=== PATIENT | female | born 1990 | race Caucasian/White ===

== ENCOUNTER 2018-02-11 08:37 | Observation (INO) | payer BC ==
[2018-02-11] MEDS ORDERED: Calcium Gluconate 10% 1 GM/10 ML SDV IVPUSH PRN (08:53)
[2018-02-11] MEDS ORDERED: Magnesium Sulfate/Water 4 GM in Premix Bag 1 BAG IV ONE (08:53)
[2018-02-11] MEDS ORDERED: Betamethasone Acetate/Betamethasone Sod Phosphate 30 MG/5 ML MDV IM SCH (09:00)
[2018-02-11] MEDS ORDERED: Magnesium Sulfate/Water 40 GM/1,000 ML BAG IV SCH (09:00)
[2018-02-11] MEDS ORDERED: Ampicillin 2 GM in Sodium Chloride 0.9% 100 ML IV SCH (09:00)
[2018-02-11] MEDS ORDERED: Lactated Ringers 1,000 ML IV SCH (10:00)
--- NOTE | 2018-02-11 10:42 | US ---
EXAMINATION: Transabdominal obstetric ultrasound HISTORY: contractions COMPARISON: None TECHNIQUE: Grayscale and spectral Doppler imaging obtained. FINDINGS: There is a single live intrauterine in a cephalic position. The placenta is anter ior and intact. Amniotic fluid level appears normal. heart rate is 191 bpm. The biparietal diam eter measures 6.6 cm, head circumference measures 24.3 cm, abdominal circumference measures 23.6 cm, and the femoral length measures 5.7 cm. Overall the fetus is within the 6th percentile when comparing to an LMP of 07/18/2017. Estimated weight is 1199 g. Biometry ratios are normal. IMPRESSION: 1. Single live intrauterine in a cephalic position. 2. Overall the fetus is within the 6th percentile. 3. heart rate is 191 bpm.
[2018-02-11 11:13] LABS: CHLORIDE,CL 103 mmol/L (98-107); SODIUM,NA 136 mmol/L (136-145)
[2018-02-11] MEDS ORDERED: NIFEdipine 10 MG Cap PO ONE (11:55)
[2018-02-11] MEDS: Ampicillin 1 GM in Sodium Chloride 0.9% 50 ML IV SCH ×3 (14:40→19:03)
[2018-02-11 18:37] LABS: CHLORIDE,CL 99 mmol/L (98-107); SODIUM,NA 131 mmol/L (136-145)
== END 2018-02-11 21:55 ==
LOC: MW.OB 08:37
PROVIDERS: ADMIT Obstetrics & Gynecology; ATTEND Obstetrics & Gynecology
DX: O60.03 Preterm labor without delivery, third trimester (principal); Z3A.29 29 weeks gestation of pregnancy; O99.283 Endocrine, nutritional and metabolic diseases complicating pregnancy, third trimester; E03.9 Hypothyroidism, unspecified; Z79.899 Other long term (current) drug therapy; O34.33 Maternal care for cervical incompetence, third trimester
CPT/HCPCS: 36415; 59025; 76815; 80048; 80053; 83735; 85027; 86592; 86762; 86803; 86850; 86900; 86901; 87081; 87340; 87389; 87491; 87591; A9270; J0290; J0702; J3475; J7030; J7050; J7120; 96365; 96366; 96368; 96372; 96376; G0378

== ENCOUNTER → 2020-08-01 | Day surgery (SDC) | payer BC ==
[~2020-08-01] MED LIST: Acetaminophen 325 MG Tab PO ONE; Lactated Ringers 1,000 ML IV SCH; NIFEdipine 30 MG Tab.ER PO ONE; Sodium Chloride 0.9% 10 ML SDV IV PRN; Sodium Chloride 0.9% 10 ML Syringe FLUSH PRN; Sodium Chloride 0.9% 2.5 ML Syringe FLUSH PRN
--- NOTE | 2020-08-01 07:21 | PCM.PREANE ---
Preanesthetic Assessment - Anesthesia/Transfusion/Family Hx Anesthesia History: Prior Anesthesia Without Reaction Family History of Anesthesia Reaction: No Transfusion History: No Prior Transfusion(s) Intubation History: Unknown - Review of Systems General: No Symptoms Pulmonary: No Symptoms Cardiovascular: No Symptoms Gastrointestinal: No Symptoms Neurological: No Symptoms Other: Reports: None - Physical Assessment Vital Signs: Last Vital Signs Temp 37.1 C 08/01/20 07:15 Pulse 76 08/01/20 07:15 Resp 16 08/01/20 07:15 BP 116/80 08/01/20 07:15 Pulse Ox 100 08/01/20 07:15 Height: 5 ft 2 in Weight: 53.524 kg ASA Class: 2 Mental Status: Alert & Oriented x3 Airway Class: Mallampati = 2 Dentition: Reports: Normal Dentition Thyro-Mental Finger Breadths: 3 Mouth Opening Finger Breadths: 3 ROM/Head Extension: Full Lungs: Clear to Auscultation, Normal Respiratory Effort Cardiovascular: Regular Rate, Regular Rhythm - Lab Values: Laboratory Last Values Plt Count 296 K/uL (150-400) 08/01/20 06:57 - Allergies Allergies/Adverse Reactions: Allergies Allergy/AdvReac Type Severity Reaction Status Date / Time No Known Allergies Allergy Verified 08/01/20 07:10 - Blood Blood Available: No - Anesthesia Plan Pre-Op Medication Ordered: None - Acknowledgements Anesthesia Type Planned: Spinal Pt an Appropriate Candidate for the Planned Anesthesia: Yes Alternatives and Risks of Anesthesia Discussed w Pt/Guardian: Yes Pt/Guardian Understands and Agrees with Anesthesia Plan: Yes PreAnesthesia Questionnaire HEENT History: Reports: None Cardiovascular History: Reports: None Respiratory History: Reports: Asthma Other Respiratory History: seldom uses inhaler Gastrointestinal History: Reports: Other (See Below) Other Gastrointestinal History: occasional heartburn with Genitourinary History: Reports: None APPLICATIONS PACKAGER History: Reports: (18 weeks and 4 days) Musculoskeletal History: Reports: None Neurological History: Reports: None Psychiatric History: Reports: None Endocrine/Metabolic History: Reports: Hypothyroidism Other Endocrine/Metabolic History: hypoglycemia Hematologic History: Reports: None Immunologic History: Reports: None Oncologic (Cancer) History: Reports: None Dermatologic History: Reports: None - Past Surgical History Head Surgeries/Procedures: Reports: None HEENT Surgical History: Reports: None Cardiovascular Surgical History: Reports: None Respiratory Surgical History: Reports: None GI Surgical History: Reports: Appendectomy, Cholecystectomy Female Surgical History: Reports: None Endocrine Surgical History: Reports: None Neurological Surgical History: Reports: None Musculoskeletal Surgical History: Reports: None Oncologic Surgical History: Reports: None Dermatological Surgical History: Reports: None - SUBSTANCE USE Tobacco Use Status *Q: Never Tobacco User - HOME MEDS Home Medications: Home Meds Albuterol Sulfate [Albuterol Sulfate HFA] 1 - 2 puff INH ASDIRECTED PRN 07/29/20 [History] Calcium Carbonate [Tums] 1 tab.chew CHEW ASDIRECTED PRN 07/29/20 [History] Lactobacillus Acidophilus [Probiotic] 1 tab PO DAILY 07/29/20 [History] Levothyroxine Sodium [Synthroid] 75 mcg PO DAILY 07/29/20 [History] Multivit-Minerals/Folic Acid [Multivitamin Gummies] 1 tab.chew CHEW DAILY 07/29/20 [History] - CURRENT (IN HOUSE) MEDS Current Meds: Current Medications Lactated Ringer's (Ringers, Lactated) 1,000 mls @ 125 mls/hr IV ASDIRECTED JOE Last Admin: 08/01/20 07:10 Dose: 125 mls/hr Documented by: Sodium Chloride (Saline Flush) 10 ml FLUSH ASDIRECTED PRN PRN Reason: Keep Vein Open Sodium Chloride (Saline Flush) 2.5 ml FLUSH ASDIRECTED PRN PRN Reason: Keep Vein Open Sodium Chloride (Normal Saline) 10 ml IV ASDIRECTED PRN PRN Reason: IV Use
--- NOTE | 2020-08-01 08:36 | PCM.OPNOTE ---
- General Post-Op/Procedure Note Date of Surgery/Procedure: 08/01/20 Operative Procedure(s): Curry cereva Pre Op Diagnosis: [id number] wks. Cervical incomptance. Post-Op Diagnosis: Same Anesthesia Technique: Spinal Primary Surgeon: Hay SEN in mLs: 20 Complications: None Condition: Good
--- NOTE | 2020-08-01 08:37 | PCM.DCSUM1 ---
Discharge Summary - Hospital Course Diagnosis: Stroke: No - Discharge Data Discharge Date: 08/01/20 Discharge Disposition: Home, Self-Care 01 Condition: Good - Referral to Home Health Primary Care Physician: Hay Mancera MD - Patient Summary/Data Operative Procedure(s) Performed: Patricio abraham - Patient Instructions Diet: Usual Diet as Tolerated Showering/Bathing: October Shower - Discharge Plan Home Medications: Home Meds Albuterol Sulfate [Albuterol Sulfate HFA] 1 - 2 puff INH ASDIRECTED PRN 07/29/20 [History] Calcium Carbonate [Tums] 1 tab.chew CHEW ASDIRECTED PRN 07/29/20 [History] Lactobacillus Acidophilus [Probiotic] 1 tab PO DAILY 07/29/20 [History] Levothyroxine Sodium [Synthroid] 75 mcg PO DAILY 07/29/20 [History] Multivit-Minerals/Folic Acid [Multivitamin Gummies] 1 tab.chew CHEW DAILY 07/29/20 [History] - Discharge Summary/Plan Comment DC Time >30 min.: Yes - General Info Date of Service: 08/01/20 Functional Status: Reports: Pain Controlled - Review of Systems General: Reports: No Symptoms HEENT: Reports: No Symptoms Pulmonary: Reports: No Symptoms Cardiovascular: Reports: No Symptoms Gastrointestinal: Reports: No Symptoms Genitourinary: Reports: No Symptoms Musculoskeletal: Reports: No Symptoms Skin: Reports: No Symptoms Neurological: Reports: No Symptoms Psychiatric: Reports: No Symptoms - Patient Data Vitals - Most Recent: Last Vital Signs Temp 37.1 C 08/01/20 07:15 Pulse 76 08/01/20 07:15 Resp 16 08/01/20 07:15 BP 116/80 08/01/20 07:15 Pulse Ox 100 08/01/20 07:15 Weight - Most Recent: 53.524 kg Lab Results - Last 24 hrs: Laboratory Results - last 24 hr 08/01/20 Range/Units 06:57 Plt Count 296 (150-400) K/uL Med Orders - Current: Current Medications Lactated Ringer's (Ringers, Lactated) 1,000 mls @ 125 mls/hr IV ASDIRECTED JOE Last Admin: 08/01/20 07:10 Dose: 125 mls/hr Documented by: Sodium Chloride (Saline Flush) 10 ml FLUSH ASDIRECTED PRN PRN Reason: Keep Vein Open Sodium Chloride (Saline Flush) 2.5 ml FLUSH ASDIRECTED PRN PRN Reason: Keep Vein Open Sodium Chloride (Normal Saline) 10 ml IV ASDIRECTED PRN PRN Reason: IV Use - Exam General: Reports: Alert, Oriented HEENT: Reports: Pupils Equal, Pupils Reactive, EOMI, Mucous Membr. Moist/Burns Neck: Reports: Supple Lungs: Reports: Clear to Auscultation, Normal Respiratory Effort Cardiovascular: Reports: Regular Rate, Regular Rhythm GI/Abdominal Exam: Normal Bowel Sounds, Soft, Non-Tender, No Organomegaly, No Distention, No Abnormal Bruit, No Mass, Pelvis Stable (Female) Exam: Normal External Exam, Normal Speculum Exam, Normal Bimanual Exam Rectal (Female) Exam: Normal Exam, Normal Rectal Tone Back Exam: Reports: Normal Inspection, Full Range of Motion Extremities: Normal Inspection, Normal Range of Motion, Non-Tender, No Pedal Edema, Normal Capillary Refill Skin: Reports: Warm, Dry, Intact Wound/Incisions: Reports: Healing Well Neurological: Reports: No New Focal Deficit Psy/Mental Status: Reports: Alert, Normal Affect, Normal Mood
--- NOTE | 2020-08-01 08:46 | PCM.POSTAN ---
POST ANESTHESIA ASSESSMENT - MENTAL STATUS Mental Status: Alert, Oriented - VITAL SIGNS Vital Signs: Last Vital Signs Temp 36.6 C 08/01/20 08:31 Pulse 68 08/01/20 08:41 Resp 12 08/01/20 08:41 BP 101/71 08/01/20 08:41 Pulse Ox 100 08/01/20 08:41 - RESPIRATORY Respiratory Status: Respiratory Rate WNL, Airway Patent, O2 Saturation Stable - CARDIOVASCULAR CV Status: Pulse Rate WNL, Blood Pressure Stable - GASTROINTESTINAL GI Status: No Symptoms - PAIN Pain Score: 5 - POST OP HYDRATION Hydration Status: Adequate & Stable - OBSERVATIONS Free Text/Narrative:: No anesthesia problems
--- NOTE | 2020-08-01 12:45 | OR ---
SURGEON: Hay Mancera MD DATE OF PROCEDURE: 08/01/2020 PREOPERATIVE DIAGNOSES: Intrauterine at 18/19 weeks, cervical incompetence. POSTOPERATIVE DIAGNOSES: Intrauterine at 18/19 weeks, cervical incompetence. OPERATION PERFORMED: Estrada cerclage. PRIMARY SURGEON: Hay Mancera MD UNDERGRADUATE INTERN: OR tech. ANESTHESIA: Spinal. ESTIMATED BLOOD LOSS: Less than 20 mL. COMPLICATIONS: None. FINDING: Intrauterine . INDICATIONS FOR SURGERY: This patient had a previous history of presenting to Labor and Delivery with painless dilatation to 7 to 8 cm at 28 weeks. She started having feeling pressure in this at 18 weeks, and because of her history, I discussed with her doing a cerclage. After explaining and discussing the advantage and disadvantage, the patient is consented for Estrada cerclage. PROCEDURE IN DETAIL: The patient brought to the OR, properly identified. After adequate level of spinal anesthesia, a straight catheter was used to empty the bladder. The patient prepped and draped in sterile fashion as usual. A weighted speculum placed in the vagina and the anterior and posterior lip of the cervix grabbed with the ring forceps, and using Mersilene band, Estrada cerclage was performed in a circular manner around the cervix and tied with due amount of tension to prevent complication. There was minimum vaginal bleeding, and after finishing the cerclage and observing the patient for a few minutes, the procedure ended. The instrument and sponge count was correct. The patient tolerated the procedure well, went to recovery room in stable general condition. CESARFAR / GENETL /[id number]
--- NOTE | 2020-08-01 13:39 | PCM48HPAN ---
Post Anesthesia Note - EVALUATION WITHIN 48HRS OF ANESTHETIC Vital Signs in Normal Range: Yes Patient Participated in Evaluation: Yes Respiratory Function Stable: Yes Airway Patent: Yes Cardiovascular Function Stable: Yes Hydration Status Stable: Yes Pain Control Satisfactory: Yes Nausea and Vomiting Control Satisfactory: Yes Mental Status Recovered: Yes Vital Signs: Last Vital Signs Temp 37.1 C 08/01/20 08:50 Pulse 78 08/01/20 13:00 Resp 15 08/01/20 13:00 BP 109/60 08/01/20 13:00 Pulse Ox 100 08/01/20 13:00 - COMMENTS/OBSERVATIONS Free Text/Narrative:: "States that she only has "slight tingling in her foot" and that she has "enough control that she is not afraid to go home or walk"
== END | disposition home or self-care (01) ==
LOC: MW.SDS 06:28
PROVIDERS: ATTEND Obstetrics & Gynecology
DX: O34.32 Maternal care for cervical incompetence, second trimester (principal); E03.9 Hypothyroidism, unspecified; Z79.890 Hormone replacement therapy; Z3A.18 18 weeks gestation of pregnancy; Z79.899 Other long term (current) drug therapy
CPT/HCPCS: 36415; 59320; 85049; A9270; J7120; 00948

== ENCOUNTER 2020-12-12 02:26 | Inpatient (IN) | payer SELFPAY ==
[2020-12-12] MEDS ORDERED: Sodium Chloride 0.9% 10 ML SDV IV PRN (02:45)
[2020-12-12] MEDS ORDERED: Butorphanol 1 MG/ML SDV IVPUSH PRN (02:45)
[2020-12-12] MEDS ORDERED: Ondansetron 4 MG/2 ML SDV IVPUSH PRN (02:45)
[2020-12-12] MEDS ORDERED: Methylergonovine 0.2 MG/1 ML Amp IM PRN (02:45)
[2020-12-12] MEDS ORDERED: Misoprostol 200 MCG Tab PO PRN (02:45)
[2020-12-12] MEDS ORDERED: Nalbuphine 10 MG/1 ML Vial IVPUSH PRN (02:45)
[2020-12-12] MEDS ORDERED: Sodium Chloride 0.9% 2.5 ML Syringe FLUSH PRN (02:45)
[2020-12-12] MEDS ORDERED: Sodium Chloride 0.9% 10 ML Syringe FLUSH PRN (02:45)
[2020-12-12] MEDS ORDERED: Tranexamic Acid 1,000 MG in Sodium Chloride 0.9% 100 ML IV PRN (02:45)
[2020-12-12] MEDS ORDERED: Oxytocin/0.9 % Sodium Chloride 30 UNIT/500 ML BAG IV SCH (02:45)
[2020-12-12] MEDS ORDERED: Lactated Ringers 1,000 ML IV SCH (02:45)
[2020-12-12] MEDS ORDERED: Carboprost Tromethamine 250 MCG/1 ML Amp IM PRN (02:45)
[2020-12-12] MEDS ORDERED: Lidocaine 1% 50 ML MDV INJECT PRN (02:45)
[2020-12-12] MEDS ORDERED: Water For Irrigation,Sterile 1,000 ML Container IRR PRN (02:45)
--- NOTE | 2020-12-12 05:40 | PCM.LDHP ---
L&D History of Present Illness - General Date of Service: 12/12/20 Admit Problem/Dx: Patient Status Order with Admit Dx/Problem 12/12/20 02:28 Patient Status [ADT] Routine 12/12/20 02:45 Patient Status [ADT] Routine Admission Diagnosis/Problem Admission Diagnosis/Problem Source of Information: Patient History Limitations: Reports: No Limitations - History of Present Illness Introduction:: 30yo @ 37w4d presents with contractions for ~10hrs. Denies VB or LOF. care c/b h/o at 30GA, and incompetent cervix s/p cerclage this which was removed at 36w3d GA. She also has h/o hypothyroidism, currently treated with levothyroxine. Otherwise she is A+, abs screen neg, RI, HepBsAg neg, HIV neg, RPR NR, GC/Chlam neg, GBS neg. Location, : Reports: Abdomen Severity: Moderate - Related Data Allergies/Adverse Reactions: Allergies Allergy/AdvReac Type Severity Reaction Status Date / Time No Known Allergies Allergy Verified 12/12/20 05:28 Home Medications: Home Meds Albuterol Sulfate [Albuterol Sulfate HFA] 1 - 2 puff INH ASDIRECTED PRN 07/29/20 [History] Calcium Carbonate [Tums] 1 tab.chew CHEW ASDIRECTED PRN 07/29/20 [History] Lactobacillus Acidophilus [Probiotic] 1 tab PO DAILY 07/29/20 [History] Levothyroxine Sodium [Synthroid] 75 mcg PO DAILY 07/29/20 [History] Multivit-Minerals/Folic Acid [Multivitamin Gummies] 1 tab.chew CHEW DAILY 07/29/20 [History] Past Medical History HEENT History: Reports: None Cardiovascular History: Reports: None Respiratory History: Reports: Asthma Other Respiratory History: seldom uses inhaler Gastrointestinal History: Reports: None Other Gastrointestinal History: occasional heartburn with Genitourinary History: Reports: None CRM ANALYST History: Reports: , Spontaneous Musculoskeletal History: Reports: None Neurological History: Reports: None Psychiatric History: Reports: Anxiety Endocrine/Metabolic History: Reports: Hypothyroidism Other Endocrine/Metabolic History: hypoglycemia Hematologic History: Reports: None Immunologic History: Reports: None Oncologic (Cancer) History: Reports: None Dermatologic History: Reports: None - Past Surgical History Respiratory Surgical History: Reports: None GI Surgical History: Reports: Appendectomy, Cholecystectomy Endocrine Surgical History: Reports: None Social & Family History - Family History Family Medical History: No Pertinent Family History OBGYN: Reports: Endocrine/Metabolic: Reports: Diabetes, type II Oncologic: Reports: Thyroid - Tobacco Use Tobacco Use Status *Q: Never Tobacco User - Caffeine Use Caffeine Use: Reports: Coffee - Recreational Drug Use Recreational Drug Use: No H&P Review of Systems - Review of Systems: Review Of Systems: See Below General: Reports: No Symptoms HEENT: Reports: No Symptoms Pulmonary: Reports: No Symptoms Cardiovascular: Reports: No Symptoms Gastrointestinal: Reports: No Symptoms Genitourinary: Reports: No Symptoms Musculoskeletal: Reports: No Symptoms Skin: Reports: No Symptoms Psychiatric: Reports: No Symptoms Neurological: Reports: No Symptoms Hematologic/Lymphatic: Reports: No Symptoms Immunologic: Reports: No Symptoms L&D Exam - Exam Exam: See Below - Vital Signs Weight: 62.596 kg - OB Specific Contraction Intensity: Moderate Movement: Active Heart Tones: Present Heart Rate (FHR) Variability: Moderate (6-25 bmp) Presentation: Vertex Estimated Weight: 6 - Hager Score Hager Score Cervix Position: Midposition Hager Score Consistency: Soft Hager Score Effacement: 51-70% Hager Score Dilation: > 5 cm Hager Score Infant's Station: -2 Hager Score Total: 9 - Exam General: Alert, Oriented Lungs: Normal Respiratory Effort Cardiovascular: Regular Rate Psychiatric: Alert, Normal Affect, Normal Mood - Patient Data Lab Results Last 24 hrs: Laboratory Results - last 24 hr 12/12/20 12/12/20 12/12/20 Range/Units 03:09 03:40 03:40 WBC 15.01 H (4.0-11.0) K/uL RBC 4.49 (4.30-5.90) M/uL Hgb 13.6 (12.0-16.0) g/dL Hct 39.1 (36.0-46.0) % MCV 87.1 (80.0-98.0) fL MCH 30.3 (27.0-32.0) pg MCHC 34.8 (31.0-37.0) g/dL RDW Std Deviation 40.4 (28.0-62.0) fl RDW Coeff of Dionne 13 (11.0-15.0) % Plt Count 336 (150-400) K/uL MPV 10.60 (7.40-12.00) fL Nucleated RBC % 0.0 /100WBC Nucleated RBCs # 0 K/uL SARS-CoV-2 RNA (MYLES) NEGATIVE (NEGATIVE) Blood Type A POSITIVE Antibody Screen NEGATIVE Result Diagrams: 12/12/20 03:40 - Problem List (1) Active labor at term SNOMED Code(s): 98381675 ICD Code: [id number] - Status: Acute Priority: High Current Visit: Yes Problem List Initiated/Reviewed/Updated: Yes Orders Last 24hrs: Active Orders 24 hr Category Date Time Status Patient Status [ADT] Routine ADT 12/12/20 02:45 Active Heart Tones [RC] CONTINUOUS Care 12/12/20 02:45 Active Non Stress Test [RC] PER UNIT ROUTINE Care 12/12/20 02:28 Active May Shower [RC] ASDIRECTED Care 12/12/20 02:45 Active Notify Provider [RC] PRN Care 12/12/20 02:45 Active Up ad Anh [RC] ASDIRECTED Care 12/12/20 02:28 Active Vaginal Exam [RC] Click to Edit Care 12/12/20 02:28 Active Vital Signs [RC] PER UNIT ROUTINE Care 12/12/20 02:28 Active RPR (SYPHILIS SERO) W/ RFLX [REF] Routine Lab 12/12/20 03:40 Received Butorphanol [Stadol] Med 12/12/20 02:45 Active 1 mg IVPUSH Q1H PRN Carboprost Tromethamine [Hemabate DS] Med 12/12/20 02:45 Active 250 mcg IM ASDIRECTED PRN Lactated Ringers [Ringers, Lactated] 1,000 ml Med 12/12/20 02:45 Active IV ASDIRECTED Lidocaine 1% [Xylocaine 1%] Med 12/12/20 02:45 Active 50 ml INJECT ONETIME PRN Methylergonovine [Methergine] Med 12/12/20 02:45 Active 0.2 mg IM ASDIRECTED PRN Nalbuphine [Nubain] Med 12/12/20 02:45 Active 10 mg IVPUSH Q1H PRN Ondansetron [Zofran] Med 12/12/20 02:45 Active 4 mg IVPUSH Q6H PRN Oxytocin/0.9 % Sodium Chloride [Oxytocin 30 Unit/500 ML Med 12/12/20 02:45 Active -NS] 30 unit in 500 ml IV TITRATE Sodium Chloride 0.9% [Normal Saline] Med 12/12/20 02:45 Active 10 ml IV ASDIRECTED PRN Sodium Chloride 0.9% [Saline Flush] Med 12/12/20 02:45 Active 10 ml FLUSH ASDIRECTED PRN Sodium Chloride 0.9% [Saline Flush] Med 12/12/20 02:45 Active 2.5 ml FLUSH ASDIRECTED PRN Tranexamic Acid [Cyklokapron] 1,000 mg Med 12/12/20 02:45 Active Sodium Chloride 0.9% [Normal Saline] 100 ml IV ONETIME Water For Irrigation,Sterile [Sterile Water for Med 12/12/20 02:45 Active Irrigation] 1,000 ml IRR ASDIRECTED PRN miSOPROStoL [Cytotec] Med 12/12/20 02:45 Active 200 mcg PO ONETIME PRN Scalp Electrode [WOMSER] Per Unit Routine Oth 12/12/20 02:45 Ordered Peripheral IV Insertion Adult [OM.PC] Routine Oth 12/12/20 02:45 Ordered Resuscitation Status Routine Resus Stat 12/12/20 02:28 Ordered Medication Orders Butorphanol Tartrate (Butorphanol 1 Mg/Ml Sdv) 1 mg IVPUSH Q1H PRN PRN Reason: Pain (severe 7-10) Carboprost Tromethamine (Carboprost Tromethamine 250 Mcg/1 Ml Amp) 250 mcg IM ASDIRECTED PRN PRN Reason: Post Hemorrhage Lactated Ringer's (Ringers, Lactated) 1,000 mls @ 150 mls/hr IV ASDIRECTED JOE Oxytocin/Sodium Chloride (Oxytocin 30 Unit/500 Ml-Ns) 30 unit in 500 mls @ 999 mls/hr IV TITRATE JOE Tranexamic Acid 1,000 mg/ (Sodium Chloride) 110 mls @ 660 mls/hr IV ONETIME PRN PRN Reason: Bleeding Lidocaine HCl (Lidocaine 1% 50 Ml Mdv) 50 ml INJECT ONETIME PRN PRN Reason: Laceration repair Methylergonovine Maleate (Methylergonovine 0.2 Mg/1 Ml Amp) 0.2 mg IM ASDIRECTED PRN PRN Reason: Post Hemorrhage Misoprostol (Misoprostol 200 Mcg Tab) 200 mcg PO ONETIME PRN PRN Reason: Post Hemorrhage Nalbuphine HCl (Nalbuphine 10 Mg/1 Ml Vial) 10 mg IVPUSH Q1H PRN PRN Reason: Pain (severe 7-10) Ondansetron HCl (Ondansetron 4 Mg/2 Ml Sdv) 4 mg IVPUSH Q6H PRN PRN Reason: Nausea/Vomiting Sodium Chloride (Sodium Chloride 0.9% 10 Ml Syringe) 10 ml FLUSH ASDIRECTED PRN PRN Reason: Keep Vein Open Sodium Chloride (Sodium Chloride 0.9% 2.5 Ml Syringe) 2.5 ml FLUSH ASDIRECTED PRN PRN Reason: Keep Vein Open Sodium Chloride (Sodium Chloride 0.9% 10 Ml Sdv) 10 ml IV ASDIRECTED PRN PRN Reason: IV Use Sterile Water (Water For Irrigation,Sterile 1,000 Ml Container) 1,000 ml IRR ASDIRECTED PRN PRN Reason: delivery Assessment/Plan Comment:: 30yo @ 37w4d admitted in active labor. care c/b h/o at 30GA, and incompetent cervix s/p cerclage this which was removed at 36w3d GA. She also has h/o hypothyroidism, currently treated with levothyroxine. Hager score of 9. Cat 1 strip Patient declines the epidural. Expectant management.
--- NOTE | 2020-12-12 12:23 | PCM.DEL ---
L & D Note - General Info Date of Service: 12/12/20 Mother's Due Date: 12/29/20 - Delivery Note Labor: Spontaneous, Augmented by Oxytocin Delivery Outcome: Livebirth Infant Delivery Method: Spontaneous Vaginal Delivery-Single Presentation: Vertex Nuchal Cord: None Anesthesia Type: None Episiotomy Type: None Laceration: None Placenta: Intact, Spontaneous Cord: 3 Vessels Resuscitation Needed: No Score 1 min: 8 Score 5 min: 9 Second Stage Interventions: Reports: Second Nurse Assessed Progress of Descent, Second Nurse Reviewed Contraction Pattern, Second Nurse Reviewed Heart Tones, Encouragement Given, Pushing Effectively Delivery Comments (Free Text/Narrative):: viable female; head delivered with good pushing; shoulders and body followed easily after; baby immediately to mom's abdomen [id number] for assessment; APGARs 8/9; cord doubly clamped, cut by FOB; baby to warmer for further assessment; 4 lbs 4 oz; placenta delivered grossly intact, avila, 3VC; EBL 250 mL; small left-sided perineal laceration, not repaired; well-approximated, hemostatic; pitocin to IVF; mom and baby left in stable condition with nurse at bedside for assessment - General Info Date of Service: 12/12/20 Admission Dx/Problem (Free Text): Patient Status Order with Admit Dx/Problem 12/12/20 02:28 Patient Status [ADT] Routine 12/12/20 02:45 Patient Status [ADT] Routine Admission Diagnosis/Problem Admission Diagnosis/Problem Functional Status: Reports: Pain Controlled - Review of Systems General: Reports: No Symptoms HEENT: Reports: No Symptoms Pulmonary: Reports: No Symptoms Cardiovascular: Reports: No Symptoms Gastrointestinal: Reports: No Symptoms Genitourinary: Reports: No Symptoms Musculoskeletal: Reports: No Symptoms Skin: Reports: No Symptoms Neurological: Reports: No Symptoms Psychiatric: Reports: No Symptoms - Patient Data Weight - Most Recent: 138 lb Lab Results Last 24 Hours: Laboratory Results - last 24 hr 12/12/20 12/12/20 12/12/20 Range/Units 03:09 03:40 03:40 WBC 15.01 H (4.0-11.0) K/uL RBC 4.49 (4.30-5.90) M/uL Hgb 13.6 (12.0-16.0) g/dL Hct 39.1 (36.0-46.0) % MCV 87.1 (80.0-98.0) fL MCH 30.3 (27.0-32.0) pg MCHC 34.8 (31.0-37.0) g/dL RDW Std Deviation 40.4 (28.0-62.0) fl RDW Coeff of Dionne 13 (11.0-15.0) % Plt Count 336 (150-400) K/uL MPV 10.60 (7.40-12.00) fL Nucleated RBC % 0.0 /100WBC Nucleated RBCs # 0 K/uL SARS-CoV-2 RNA (MYLES) NEGATIVE (NEGATIVE) Blood Type A POSITIVE Antibody Screen NEGATIVE Med Orders - Current: Current Medications Butorphanol Tartrate (Butorphanol 1 Mg/Ml Sdv) 1 mg IVPUSH Q1H PRN PRN Reason: Pain (severe 7-10) Carboprost Tromethamine (Carboprost Tromethamine 250 Mcg/1 Ml Amp) 250 mcg IM ASDIRECTED PRN PRN Reason: Post Hemorrhage Lactated Ringer's (Ringers, Lactated) 1,000 mls @ 150 mls/hr IV ASDIRECTED JOE Oxytocin/Sodium Chloride (Oxytocin 30 Unit/500 Ml-Ns) 30 unit in 500 mls @ 999 mls/hr IV TITRATE JOE Tranexamic Acid 1,000 mg/ (Sodium Chloride) 110 mls @ 660 mls/hr IV ONETIME PRN PRN Reason: Bleeding Lidocaine HCl (Lidocaine 1% 50 Ml Mdv) 50 ml INJECT ONETIME PRN PRN Reason: Laceration repair Methylergonovine Maleate (Methylergonovine 0.2 Mg/1 Ml Amp) 0.2 mg IM ASDIRECTED PRN PRN Reason: Post Hemorrhage Misoprostol (Misoprostol 200 Mcg Tab) 200 mcg PO ONETIME PRN PRN Reason: Post Hemorrhage Nalbuphine HCl (Nalbuphine 10 Mg/1 Ml Vial) 10 mg IVPUSH Q1H PRN PRN Reason: Pain (severe 7-10) Ondansetron HCl (Ondansetron 4 Mg/2 Ml Sdv) 4 mg IVPUSH Q6H PRN PRN Reason: Nausea/Vomiting Sodium Chloride (Sodium Chloride 0.9% 10 Ml Syringe) 10 ml FLUSH ASDIRECTED PRN PRN Reason: Keep Vein Open Sodium Chloride (Sodium Chloride 0.9% 2.5 Ml Syringe) 2.5 ml FLUSH ASDIRECTED PRN PRN Reason: Keep Vein Open Sodium Chloride (Sodium Chloride 0.9% 10 Ml Sdv) 10 ml IV ASDIRECTED PRN PRN Reason: IV Use Sterile Water (Water For Irrigation,Sterile 1,000 Ml Container) 1,000 ml IRR ASDIRECTED PRN PRN Reason: delivery - Exam General: Alert, Oriented, Cooperative, No Acute Distress GI/Abdominal Exam: Soft, Non-Tender (Female) Exam: Normal External Exam Back Exam: Normal Inspection, Full Range of Motion Extremities: Normal Inspection, Normal Range of Motion, Non-Tender, Normal Capillary Refill Skin: Warm, Dry, Intact Neurological: No New Focal Deficit, Normal Speech, Normal Tone, Sensation Intact Psy/Mental Status: Alert, Normal Affect, Normal Mood - Problem List & Annotations (1) (spontaneous vaginal delivery) SNOMED Code(s): 768399534 Code(s): O80 - ENCOUNTER FOR FULL-TERM UNCOMPLICATED DELIVERY Status: Acute Priority: High Current Visit: Yes - Problem List Review Problem List Initiated/Reviewed/Updated: Yes - Plan Plan:: 30yo @ 37w4d admitted in active labor. care c/b h/o at 30GA, and incompetent cervix s/p cerclage this which was removed at 36w3d GA. She also has h/o hypothyroidism, currently treated with levothyroxine. Hager score of 9. Cat 1 strip Patient declines the epidural. Expectant management. Delivery A: viable female; head delivered with good pushing; shoulders and body followed easily after; baby immediately to mom's abdomen [id number] for assessment; APGARs 8/9; cord doubly clamped, cut by FOB; baby to warmer for further assessment; 4 lbs 4 oz; placenta delivered grossly intact, gramajo, 3VC; EBL 250 mL; small left-sided perineal laceration, not repaired; well- approximated, hemostatic; pitocin to IVF; mom and baby left in stable condition with nurse at bedside for assessment P: Routine plan of care; Dr. Mancera updated.
[2020-12-12] MEDS ORDERED: Bisacodyl 10 MG Supp RECTAL PRN (12:25)
[2020-12-12] MEDS ORDERED: oxyCODONE 5 MG Tab PO PRN (12:25)
[2020-12-12] MEDS ORDERED: Benzocaine/Menthol 20%-0.5% Spray 78 GM Cannister TOP PRN (12:25)
[2020-12-12] MEDS ORDERED: Witch Hazel Medicated Pads 40/Jar TOP PRN (12:25)
[2020-12-12] MEDS ORDERED: Acetaminophen 500 MG Tab PO PRN (12:25)
[2020-12-12] MEDS ORDERED: Docusate Sodium 100 MG Cap PO PRN (12:25)
[2020-12-12] MEDS ORDERED: Lanolin 100% Cream 7 GM Tube TOP PRN (12:25)
[2020-12-12] MEDS ORDERED: Ibuprofen 400 MG Tab PO PRN (12:25)
[2020-12-12] MEDS: Ibuprofen 800 MG Tab PO PRN ×2 (13:26→20:52)
[2020-12-12] MEDS: Acetaminophen 500 MG Tab PO PRN ×2 (16:47→23:12)
[2020-12-13] MEDS: Ibuprofen 800 MG Tab PO PRN ×3 (03:49→17:18)
[2020-12-13] MEDS: Acetaminophen 500 MG Tab PO PRN ×2 (06:03→13:22)
--- NOTE | 2020-12-13 07:23 | PCM.PNPP ---
- General Info Date of Service: 12/13/20 Admission Dx/Problem (Free Text): Patient Status Order with Admit Dx/Problem 12/12/20 02:28 Patient Status [ADT] Routine 12/12/20 02:45 Patient Status [ADT] Routine Admission Diagnosis/Problem Admission Diagnosis/Problem Functional Status: Reports: Pain Controlled, Tolerating Diet, Ambulating, Urinating - Review of Systems General: Reports: No Symptoms HEENT: Reports: No Symptoms Pulmonary: Reports: No Symptoms Cardiovascular: Reports: No Symptoms Gastrointestinal: Reports: No Symptoms Genitourinary: Reports: No Symptoms Musculoskeletal: Reports: No Symptoms Skin: Reports: No Symptoms Neurological: Reports: No Symptoms Psychiatric: Reports: No Symptoms - General Info Date of Service: 12/13/20 - Patient Data Vital Signs - Most Recent: Last Vital Signs Temp 97.6 F 12/13/20 03:52 Pulse 74 12/13/20 03:52 Resp 17 12/13/20 03:52 BP 114/69 12/13/20 03:52 Pulse Ox 92 L 12/13/20 03:52 Weight - Most Recent: 138 lb Lab Results - Last 24 Hours: Laboratory Results - last 24 hr 12/13/20 Range/Units 05:48 Hgb 12.0 (12.0-16.0) g/dL Hct 35.9 L (36.0-46.0) % Med Orders - Current: Current Medications Acetaminophen (Acetaminophen 500 Mg Tab) 500 mg PO Q4H PRN PRN Reason: Pain (mild 1-3) Acetaminophen (Acetaminophen 500 Mg Tab) 1,000 mg PO Q4H PRN PRN Reason: Pain (mild 1-3) Last Admin: 12/13/20 06:03 Dose: 1,000 mg Documented by: Benzocaine/Menthol (Benzocaine/Menthol 20%-0.5% Parkin 78 Gm Cannister) 78 gm TOP ASDIRECTED PRN PRN Reason: Perineal Comfort Measure Last Admin: 12/12/20 16:46 Dose: 1 can Documented by: Bisacodyl (Bisacodyl 10 Mg Supp) 10 mg RECTAL ONETIME PRN PRN Reason: Constipation Docusate Sodium (Docusate Sodium 100 Mg Cap) 100 mg PO Q12H PRN PRN Reason: Constipation Emollient Ointment (Lanolin 100% Cream 7 Gm Tube) 0 gm TOP ASDIRECTED PRN PRN Reason: Sore Nipples Ibuprofen (Ibuprofen 400 Mg Tab) 400 mg PO Q4H PRN PRN Reason: Pain (mild 1-3) Ibuprofen (Ibuprofen 800 Mg Tab) 800 mg PO Q6H PRN PRN Reason: Pain (mild 1-3) Last Admin: 12/13/20 03:49 Dose: 800 mg Documented by: Oxycodone HCl (Oxycodone 5 Mg Tab) 5 mg PO Q2H PRN PRN Reason: Pain (severe 7-10) Witch Sandra (Witch Sandra Medicated Pads 40/Jar) 1 pad TOP ASDIRECTED PRN PRN Reason: comfort care Last Admin: 12/12/20 16:46 Dose: 1 box Documented by: Discontinued Medications Butorphanol Tartrate (Butorphanol 1 Mg/Ml Sdv) 1 mg IVPUSH Q1H PRN PRN Reason: Pain (severe 7-10) Last Admin: 12/12/20 12:19 Dose: 1 mg Documented by: Carboprost Tromethamine (Carboprost Tromethamine 250 Mcg/1 Ml Amp) 250 mcg IM ASDIRECTED PRN PRN Reason: Post Hemorrhage Lactated Ringer's (Ringers, Lactated) 1,000 mls @ 150 mls/hr IV ASDIRECTED [facility] Last Admin: 12/12/20 11:00 Dose: 150 mls/hr Documented by: Oxytocin/Sodium Chloride (Oxytocin 30 Unit/500 Ml-Ns) 30 unit in 500 mls @ 999 mls/hr IV TITRATE [facility] Last Admin: 12/12/20 12:00 Dose: 999 mls/hr Documented by: Tranexamic Acid 1,000 mg/ (Sodium Chloride) 110 mls @ 660 mls/hr IV ONETIME PRN PRN Reason: Bleeding Lidocaine HCl (Lidocaine 1% 50 Ml Mdv) 50 ml INJECT ONETIME PRN PRN Reason: Laceration repair Methylergonovine Maleate (Methylergonovine 0.2 Mg/1 Ml Amp) 0.2 mg IM ASDIRECTED PRN PRN Reason: Post Hemorrhage Misoprostol (Misoprostol 200 Mcg Tab) 200 mcg PO ONETIME PRN PRN Reason: Post Hemorrhage Nalbuphine HCl (Nalbuphine 10 Mg/1 Ml Vial) 10 mg IVPUSH Q1H PRN PRN Reason: Pain (severe 7-10) Ondansetron HCl (Ondansetron 4 Mg/2 Ml Sdv) 4 mg IVPUSH Q6H PRN PRN Reason: Nausea/Vomiting Last Admin: 12/12/20 12:20 Dose: 4 mg Documented by: Sodium Chloride (Sodium Chloride 0.9% 10 Ml Syringe) 10 ml FLUSH ASDIRECTED PRN PRN Reason: Keep Vein Open Sodium Chloride (Sodium Chloride 0.9% 2.5 Ml Syringe) 2.5 ml FLUSH ASDIRECTED PRN PRN Reason: Keep Vein Open Sodium Chloride (Sodium Chloride 0.9% 10 Ml Sdv) 10 ml IV ASDIRECTED PRN PRN Reason: IV Use Sterile Water (Water For Irrigation,Sterile 1,000 Ml Container) 1,000 ml IRR ASDIRECTED PRN PRN Reason: delivery - Infant Interaction Disposition, : [place] in Room with Family Interaction: Holding Infant Feeding: Attempted ; Nursed Fair/Poor (supplementing with neosure) Support Person: - Recovery Exam Fundal Tone: Firm Fundal Level: 2 Fingerbreadths Below Umbilicus Fundal Placement: Midline Lochia Amount: Scant Lochia Color: Rubra/Red Perineum Description: Intact, Minimal Bruising/Swelling Episiotomy/Laceration: None Bladder Status: Voiding - Exam General: Alert, Oriented, Cooperative, No Acute Distress Lungs: Normal Respiratory Effort Cardiovascular: Regular Rate, Regular Rhythm GI/Abdominal Exam: Soft, Non-Tender Extremities: Normal Inspection, Normal Range of Motion, Non-Tender, Normal Capillary Refill Skin: Warm, Dry, Intact Neurological: No New Focal Deficit, Normal Speech, Normal Tone, Sensation Intact Psy/Mental Status: Alert, Normal Affect, Normal Mood - Problem List & Annotations (1) (spontaneous vaginal delivery) SNOMED Code(s): 003235304 Code(s): O80 - ENCOUNTER FOR FULL-TERM UNCOMPLICATED DELIVERY Status: Acute Priority: High Current Visit: Yes - Problem List Review Problem List Initiated/Reviewed/Updated: Yes - My Orders Last 24 Hours: My Active Orders 12/12/20 Lunch Regular Diet [DIET] 12/12/20 12:25 Patient Status [ADT] Routine May Shower [RC] ASDIRECTED Up ad Anh [RC] ASDIRECTED Vital Signs [RC] PER UNIT ROUTINE Acetaminophen [Tylenol Extra Strength] 1,000 mg PO Q4H PRN Acetaminophen [Tylenol Extra Strength] 500 mg PO Q4H PRN Benzocaine/Menthol [Dermoplast Pain Relief 20%-0.5% Parkin] 78 gm TOP ASDIRECTED PRN Docusate Sodium [Colace] 100 mg PO Q12H PRN Ibuprofen [Motrin] 400 mg PO Q4H PRN Ibuprofen [Motrin] 800 mg PO Q6H PRN Lanolin [Lansinoh HPA] See Dose Instructions TOP ASDIRECTED PRN bisacodyL [Dulcolax] 10 mg RECTAL ONETIME PRN oxyCODONE 5 mg PO Q2H PRN witch Sandra [Tucks] 1 pad TOP ASDIRECTED PRN Assess Lochia [WOMSER] Per Unit Routine Assess Uterine Involution [WOMSER] Per Unit Routine Peripheral IV Discontinue [OM.PC] Routine Resuscitation Status Routine - Plan Plan:: 30yo @ 37w4d admitted in active labor. care c/b h/o at 30GA, and incompetent cervix s/p cerclage this which was removed at 36w3d GA. She also has h/o hypothyroidism, currently treated with levothyroxine. Hager score of 9. Cat 1 strip Patient declines the epidural. Expectant management. Delivery A: viable female; head delivered with good pushing; shoulders and body followed easily after; baby immediately to mom's abdomen [id number] for assessment; APGARs 8/9; cord doubly clamped, cut by FOB; baby to warmer for further assessment; 4 lbs 4 oz; placenta delivered grossly intact, gramajo, 3VC; EBL 250 mL; small left-sided perineal laceration, not repaired; well-ap proximated, hemostatic; pitocin to IVF; mom and baby left in stable condition with nurse at bedside for assessment P: Routine plan of care; Dr. Mancera updated. PP Day 1 A: Ambulating, urinating, and tolerating diet. Attempted ; nursed fair; continues to pump and supplement with neosure. Encourage increased intake of water. Bonding well with baby. NO concerns/questions at this time. P: Routine plan of care. Anticipate discharge tomorrow. Dr. Mancera updated.
== END 2020-12-13 18:47 | disposition home or self-care (01) | DRG 807 ==
LOC: MW.OBCHECK 02:26 → MW.OB 02:28 → MW.OBCHECK 02:45 → MW.OB 02:45 → OBSVTOIN 11:58 → MW.OB 19:15
PROVIDERS: ADMIT Obstetrics & Gynecology Obstetrics; ATTEND Obstetrics & Gynecology Obstetrics
PROC: 10E0XZZ Delivery of Products of Conception, External Approach (ICD-10-PCS; principal; 2020-12-12)
DX: O99.284 Endocrine, nutritional and metabolic diseases complicating childbirth (principal); Z37.0 Single live birth; Z3A.37 37 weeks gestation of pregnancy; E03.9 Hypothyroidism, unspecified; Z20.822 Contact with and (suspected) exposure to COVID-19
CPT/HCPCS: 36415; 59025; 59409; 85014; 85018; 85027; 86592; 86850; 86900; 86901; A9270-GY; J0595; J2405; J2590; J7120; U0002